=== PATIENT | male | born 1955 | race Caucasian/White ===

== ENCOUNTER 2019-10-07 06:40 | Day surgery (SDC) | payer OTHER ==
[2019-10-04 10:37] VITALS: BMI 27.9
[~2019-10-07 06:40] MED LIST: LACTATED RINGERS 1,000 ML IV SCH
[2019-10-07 07:20] VITALS: TEMP 98.2
[2019-10-07 07:33] LABS: Glucose,Whole Blood 113 mg/dL (75-99)
[2019-10-07] MEDS ORDERED: PROPOFOL 10 MG/ML 20 ML VIAL IV ONE (07:49)
--- NOTE | 2019-10-07 08:28 | P.PCN ---
Date of Procedure: 10/07/19 Description of Procedure: BRIEF HISTORY: Patient is a 64-year-old pleasant male scheduled for an elective colonoscopy as a part of screening for malignant neoplasm of the colon. No prior colonoscopy. No change in bowel habits, blood per rectum or abdominal pain reported. He does report colon cancer in his mother 70s. No prior colonoscopy. PROCEDURE PERFORMED: Colonoscopy with polypectomy. PREOPERATIVE DIAGNOSIS: Screening for malignant neoplasm of the colon, no prior colonoscopy. ESTIMATED BLOOD LOSS: Minimal. IV sedation per Anesthesia. PROCEDURE: After informed consent was obtained, the patient, was brought into the endoscopy unit. IV sedation was administered by Anesthesia under continuous monitoring. Digital rectal examination was normal. Initially the Olympus CF-190 flexible video colonoscope was then inserted in the rectum, gradually advanced into the cecum without any difficulty. Careful examination was performed as the scope was gradually being withdrawn. Ileocecal valve and the appendiceal orifice were visualized and appeared normal. Prep was excellent. Mucosa of the cecum, ascending colon, transverse colon, descending colon, sigmoid colon, and rectum appeared normal. Diminutive 1 mm ascending colon polyp removed with cold forcep polypectomy. Diminutive 3 mm and 2 mm transverse colon polyps removed with forcep polypectomy. Diminutive 2 mm and 1 mm sigmoid polyps removed with cold forcep polypectomy. Retroflexion was performed in the rectum and no lesions were seen. The patient tolerated the procedure well. IMPRESSION: Diminutive ascending colon polyp removed with cold forceps. 2 diminutive transverse colon polyps removed with cold forceps. 2 diminutive sigmoid colon polyps removed with cold forceps. RECOMMENDATIONS: Findings of this examination were discussed with the patient and his friend. Okay to resume diet. Okay to resume medications. Await pathology from polypectomies. Would recommend repeat colonoscopy in 5 years for personal history of colon polyps and family history of colon cancer.
[2019-10-07 08:35] VITALS: RESP 18
[2019-10-07 08:44] VITALS: BP 172/80; PULSE 66
== END 2019-10-07 09:03 | disposition home or self-care (01) ==
LOC: ORWHC2ENDO 06:40
PROVIDERS: ATTEND Internal Medicine
DX: Z12.11 Encounter for screening for malignant neoplasm of colon (principal); D12.2 Benign neoplasm of ascending colon; D12.3 Benign neoplasm of transverse colon; K63.5 Polyp of colon; Z80.0 Family history of malignant neoplasm of digestive organs; I10 Essential (primary) hypertension; J44.9 Chronic obstructive pulmonary disease, unspecified; E07.9 Disorder of thyroid, unspecified; E11.9 Type 2 diabetes mellitus without complications; Z79.4 Long term (current) use of insulin; Z79.890 Hormone replacement therapy; Z79.899 Other long term (current) drug therapy; Z87.891 Personal history of nicotine dependence
CPT/HCPCS: 88305; 45380; J2704

== ENCOUNTER 2019-10-17 01:18 | Emergency (ER) | payer OTHER ==
[2019-10-17 01:27] VITALS: BP 196/84; PULSE 60; RESP 18; TEMP 97.6
[2019-10-17 01:28] LABS: Glucose,Whole Blood 93 mg/dL (75-99)
--- NOTE | 2019-10-17 02:12 | ED ---
General Adult HPI - General Chief complaint: Altered Mental Status Stated complaint: Altered Mental Status Time Seen by Provider: 10/17/19 01:34 Source: patient, EMS Mode of arrival: EMS Limitations: no limitations - History of Present Illness Initial comments: Patient's a 64-year-old man with history of diabetes who is brought for evaluation of hypoglycemia. The patient states that he uses sliding scale insulin and is fairly liberal with his dosing. He stated that he probably has an episode of hypoglycemia at least a few times per week. Today he was observed to be sleeping in a car. Bystanders were not able to arouse him and EMS was called. Patient's blood sugar was found to be proximally 50 on the scene. Patient was given glucose and then brought here for further evaluation. Patient states that he is at his baseline. Patient denies other complaints. -: minutes(s) Severity scale (1-10): 0 Associated Symptoms: denies other symptoms Treatments Prior to Arrival: none - Related Data Home Medications Medication Instructions Recorded Confirmed Atenolol 25 mg PO DAILY 10/04/19 10/07/19 Ergocalciferol [Vitamin D2] 50,000 unit PO WILL 10/04/19 10/07/19 Folic Acid 1 mg PO DAILY 10/04/19 10/07/19 INSULIN ASPART (NovoLOG) [NovoLOG 0 unit SQ ACHS 10/04/19 10/07/19 (formulary)] Insulin Glargine [Lantus] 18 unit SQ HS 10/04/19 10/07/19 Levothyroxine Sodium [Synthroid] 150 mcg PO DAILY 10/04/19 10/07/19 Methotrexate [Xatmep Oral Soln] 12.5 tab PO WILL 10/04/19 10/07/19 Allergies Allergy/AdvReac Type Severity Reaction Status Date / Time No Known Allergies Allergy Verified 10/04/19 10:02 Review of Systems ROS Statement: Those systems with pertinent positive or pertinent negative responses have been documented in the HPI. ROS Other: All systems not noted in ROS Statement are negative. Constitutional: Denies: fever, weakness Eyes: Denies: vision change Respiratory: Denies: cough, dyspnea Cardiovascular: Denies: chest pain, palpitations Gastrointestinal: Denies: abdominal pain, vomiting, diarrhea Genitourinary: Denies: dysuria, hematuria Musculoskeletal: Denies: back pain Skin: Denies: rash Neurological: Denies: headache, weakness Past Medical History Past Medical History: COPD, Diabetes Mellitus, Hypertension, Rheumatoid Arthritis (RA), Thyroid Disorder Additional Past Medical History / Comment(s): INSULIN DEPENDENT, RETINOPATHY History of Any Multi-Drug Resistant Organisms: None Reported Past Surgical History: No Surgical Hx Reported Past Anesthesia/Blood Transfusion Reactions: No Reported Reaction Additional Past Anesthesia/Blood Transfusion Reaction / Comment(s): WISDOM TEETH EXTRACTIONS Past Psychological History: No Psychological Hx Reported Smoking Status: Current every day smoker - Past Family History Father Family Medical History: Cancer Additional Family Medical History / Comment(s): COLON CANCER, PROSTATE CANCER Mother Family Medical History: Cancer Additional Family Medical History / Comment(s): BREAST CANCER General Exam Limitations: no limitations General appearance: alert, in no apparent distress Head exam: Present: atraumatic, normocephalic Eye exam: Present: normal appearance. Absent: scleral icterus, conjunctival injection ENT exam: Present: normal oropharynx Respiratory exam: Present: normal lung sounds bilaterally. Absent: respiratory distress, wheezes, rales, rhonchi, stridor Cardiovascular Exam: Present: regular rate, normal rhythm, normal heart sounds. Absent: systolic murmur, diastolic murmur, rubs, gallop GI/Abdominal exam: Present: soft. Absent: distended, tenderness, guarding Extremities exam: Present: normal inspection, normal capillary refill Neurological exam: Present: alert, oriented X3, CN II-XII intact. Absent: motor sensory deficit Skin exam: Present: warm, dry, intact, normal color Course Vital Signs 10/17/19 01:19 Temperature 97.6 F Pulse Rate 60 Respiratory 18 Rate Blood Pressure 196/84 O2 Sat by Pulse 100 Oximetry Medical Decision Making - Medical Decision Making Patient is a 64-year-old man with history of diabetes and frequent episodes of hypoglycemia. He presents with another one of these tonight. The patient was counseled on diet and insulin and I did recommend that we watch him to recheck and ensure that his blood sugar is not trending low again. The patient expresses understanding of the risk but states that he needs to go as he has something must be attended to. Expresses staining of risk hypoglycemia, other injury, permanent disability or . - Lab Data Lab Results 10/17/19 Range/Units 01:26 POC Glucose (mg/dL) 93 (75-99) mg/dL POC Glu Human Services Worker ID Antony Núñez Disposition Clinical Impression: Hypoglycemia Disposition: Left Against Medical Advice Condition: Good Instructions (If sedation given, give patient instructions): Hypoglycemia in a Person with Diabetes (ED) Is patient prescribed a controlled substance at d/c from ED?: No Referrals: Omer Vallejo DO [Primary Care Provider] - 1-2 days
== END 2019-10-17 02:21 | disposition left against medical advice (07) ==
LOC: EC 01:18
DX: E11.649 Type 2 diabetes mellitus with hypoglycemia without coma (principal); R41.82 Altered mental status, unspecified; I10 Essential (primary) hypertension; M06.9 Rheumatoid arthritis, unspecified; E07.9 Disorder of thyroid, unspecified; F17.200 Nicotine dependence, unspecified, uncomplicated; Z79.4 Long term (current) use of insulin; Z79.890 Hormone replacement therapy; Z79.899 Other long term (current) drug therapy
CPT/HCPCS: 36415; 99285

== ENCOUNTER → 2020-01-13 | Outpatient (CLI) | payer OTHER ==
--- NOTE | 2020-01-13 12:21 | XR ---
EXAMINATION TYPE: XR chest 2V DATE OF EXAM: 01/13/2020 COMPARISON: Chest x-ray July 21, 2014 HISTORY: Flulike symptoms for 2 weeks. Shortness of breath and cough. TECHNIQUE: Frontal and lateral views of the chest are obtained. FINDINGS: There is some increased markings right middle lobe seen best on lateral view. Without silh ouetting right heart border left lung is clear. No pleural effusion or pneumothorax present bilateral ly. The cardiac silhouette size is upper limits of normal without focal cirrhotic change aortic knob. The osseous structures are intact. IMPRESSION: Developing right middle lobe acute infiltrate and/or atelectasis.
== END | disposition home or self-care (01) ==
LOC: RADXRYALE 11:56
PROVIDERS: ATTEND Physician Assistant Medical
DX: R91.8 Other nonspecific abnormal finding of lung field (principal)
CPT/HCPCS: 71046

== ENCOUNTER 2020-02-12 01:18 | Emergency (ER) | payer OTHER ==
[2020-02-12 01:23] LABS: Glucose,Whole Blood 77 mg/dL (75-99)
[2020-02-12 01:49] VITALS: RESP 18; TEMP 97.3
--- NOTE | 2020-02-12 01:51 | ED ---
Recheck HPI - General Chief Complaint: Recheck/Abnormal Lab/Rx Stated Complaint: diabetic issue Time Seen by Provider: 02/12/20 01:26 Source: patient, EMS Mode of arrival: EMS - History of Present Illness Initial Comments: Ryan is a 64 yo 1 dependent diabetic who is brought to the ER today by ambulance. EMS was called by the patient's family who found him unresponsive. EMS arrived to find the patient unresponsive with a low glucose. IV axis was obtained is given IV glucose, patient then became awake alert and oriented. Patient reports that he takes sliding scale insulin 3 times daily, he states there is a possibility he actually took his evening medications twice. He cannot recall what his nighttime sugar was or how much insulin he gave himself. He denies any intent to hurt himself. He denies any recent illness. He denies nausea vomiting or diarrhea. He reports that he ate a normal dinner. - Related Data Home Medications Medication Instructions Recorded Confirmed Atenolol 25 mg PO DAILY 10/04/19 10/07/19 Ergocalciferol [Vitamin D2] 50,000 unit PO WILL 10/04/19 10/07/19 Folic Acid 1 mg PO DAILY 10/04/19 10/07/19 INSULIN ASPART (NovoLOG) [NovoLOG 0 unit SQ ACHS 10/04/19 10/07/19 (formulary)] Insulin Glargine [Lantus] 18 unit SQ HS 10/04/19 10/07/19 Levothyroxine Sodium [Synthroid] 150 mcg PO DAILY 10/04/19 10/07/19 Methotrexate [Xatmep Oral Soln] 12.5 tab PO WILL 10/04/19 10/07/19 Allergies Allergy/AdvReac Type Severity Reaction Status Date / Time No Known Allergies Allergy Verified 10/04/19 10:02 Review of Systems ROS Statement: Those systems with pertinent positive or pertinent negative responses have been documented in the HPI. ROS Other: All systems not noted in ROS Statement are negative. Past Medical History Past Medical History: COPD, Diabetes Mellitus, Hypertension, Rheumatoid Arthritis (RA), Thyroid Disorder Additional Past Medical History / Comment(s): INSULIN DEPENDENT, RETINOPATHY History of Any Multi-Drug Resistant Organisms: None Reported Past Surgical History: No Surgical Hx Reported Past Anesthesia/Blood Transfusion Reactions: No Reported Reaction Additional Past Anesthesia/Blood Transfusion Reaction / Comment(s): WISDOM TEETH EXTRACTIONS Past Psychological History: No Psychological Hx Reported Smoking Status: Current every day smoker Past Alcohol Use History: None Reported Past Drug Use History: None Reported - Past Family History Father Family Medical History: Cancer Additional Family Medical History / Comment(s): COLON CANCER, PROSTATE CANCER Mother Family Medical History: Cancer Additional Family Medical History / Comment(s): BREAST CANCER Course Vital Signs 02/12/20 01:21 Temperature 97.3 F L Pulse Rate 74 Respiratory 18 Rate Blood Pressure 145/76 O2 Sat by Pulse 99 Oximetry Medical Decision Making - Medical Decision Making The patient was seen and evaluated history was obtained from patient and EMS Patient was apparently hypoglycemic and unresponsive but responded after glucose, patient awake alert oriented glucose is 77 patient's eating a turkey sandwich and drinking fruit punch Patient's repeat glucose was in the 120s, patient awake alert oriented comfortable with plan for discharge home at this time. Patient has a ride home. Patient was discharged home in stable condition. - Lab Data Lab Results 02/12/20 02/12/20 Range/Units 01:21 02:28 POC Glucose (mg/dL) 77 125 H (75-99) mg/dL POC Glu Canvas Worker ID Galdino Beltran Shamiya, A Disposition Clinical Impression: Hypoglycemia associated with diabetes Disposition: HOME SELF-CARE Condition: Stable Additional Instructions: Make sure you are eating plenty, check your sugars regularly Follow up with your PCP Return to the ER for re-evaluation if you continue to have irregular sugars Is patient prescribed a controlled substance at d/c from ED?: No Referrals: Oemr Vallejo DO [Primary Care Provider] - 1-2 days
[2020-02-12 02:32] LABS: Glucose,Whole Blood 125 mg/dL (75-99)
[2020-02-12 03:17] VITALS: BP 163/95; PULSE 78
== END 2020-02-12 03:08 | disposition home or self-care (01) ==
LOC: EC 01:18
DX: E11.649 Type 2 diabetes mellitus with hypoglycemia without coma (principal); M06.9 Rheumatoid arthritis, unspecified; I10 Essential (primary) hypertension; J44.9 Chronic obstructive pulmonary disease, unspecified; E11.319 Type 2 diabetes mellitus with unspecified diabetic retinopathy without macular edema; F17.200 Nicotine dependence, unspecified, uncomplicated; Z79.4 Long term (current) use of insulin; Z79.890 Hormone replacement therapy; Z79.899 Other long term (current) drug therapy
CPT/HCPCS: 36415; 99283

== ENCOUNTER → 2020-10-27 | Outpatient (CLI) | payer OTHER ==
--- NOTE | 2020-10-27 15:45 | XR ---
EXAMINATION TYPE: XR chest 2V DATE OF EXAM: 10/27/2020 COMPARISON: Chest x-ray January 13, 2020 HISTORY: Smoker. Hyperglycemia. Cough. TECHNIQUE: Frontal and lateral views of the chest are obtained. FINDINGS: There is background chronic emphysematous mild pulmonary fibrotic changes without suspicio us new focal air space opacity, pleural effusion, or pneumothorax seen bilaterally. The cardiac silh ouette size is stable and upper limits of normal with atherosclerotic change in the aortic knob redem onstrated. Multilevel spurring of the thoracic spine. IMPRESSION: Chronic changes without acute pulmonary process.
== END | disposition home or self-care (01) ==
LOC: RADXRYALE 15:30
PROVIDERS: ATTEND Physician Assistant Medical
DX: R91.8 Other nonspecific abnormal finding of lung field (principal)
CPT/HCPCS: 71046